=== PATIENT | male | born 1970 | race Caucasian/White ===

== ENCOUNTER → 2020-06-14 16:07 | Outpatient (CLI) | payer OTHER, SELFPAY ==
--- NOTE | ~2020-06-14 | XR_ITS ---
XR chest 2V DATE: 06/14/2020 16:24 INDICATION: TECHNIQUE: PA and lateral views COMPARISON: None FINDINGS: There is patchy bilateral infiltrate in the mid and particularly lower lung akhtar. No ple ural effusion or pneumothorax. Normal heart size. No hilar or mediastinal enlargement. IMPRESSION: Patchy bilateral pulmonary infiltrates Reviewed, dictated and finalized at location A.
== END ==
DX: R04.2 Hemoptysis (principal); R91.8 Other nonspecific abnormal finding of lung field
CPT/HCPCS: 71046

== ENCOUNTER 2020-06-15 14:54 | Outpatient (CLI) | payer OTHER, SELFPAY ==
[2020-06-15 16:04] LABS: Basophils Percent Auto 0.1 % (0.2-1.2); Eosinophils Percent Auto 0.1 % (0-4.4); Hematocrit 43.3 % (42.0-52.0); Hemoglobin 14.8 g/dL (14.0-18.0); Immature Granulocyte Absolute 0.04 K/mm3 (0.00-0.031); Immature Granulocyte Percent A 0.5 % (0-0.5); Lymphocytes Absolute Auto 1.29 K/mm3 (0.9-3.2); Mean Corpuscular HGB Conc 34.2 g/dl (32-36); Mean Corpuscular Hemoglobin 30.4 pg (26-34); Mean Corpuscular Volume 88.9 fl (80-100); Mean Platelet Volume 10.3 fl (7.4-10.4); Monocytes Absolute Auto 0.5 K/mm3 (0.1-0.6); Monocytes Percent Auto 6.8 % (2.6-8.5); Neutrophils Absolute Auto 5.7 K/mm3 (1.3-6.7); Neutrophils Percent Auto 75.5 % (45.5-73.1); Platelet Count Result 286 k/mm3 (150-375); Red Blood Count 4.87 M/mm3 (4.6-6.20); Red Cell Distribution Width 13.6 % (11.5-14.5); White Blood Count 7.6 K/mm3 (4.5-10.0)
[2020-06-16 14:37] LABS: Reference Lab Test Result Negative
== END 2020-06-15 14:55 | disposition home or self-care (01) ==
DX: Z01.84 Encounter for antibody response examination (principal); R04.2 Hemoptysis; R09.81 Nasal congestion
CPT/HCPCS: 36415; 85025; 86769